=== PATIENT | female | born 1980 | race American Indian/Alaskan Native ===

== ENCOUNTER 2016-08-11 09:18 | Emergency (ER) | payer SELFPAY | END 2016-08-11 15:15 | disposition left against medical advice (07) | LOC: ED 09:18 | DX: R10.30 Lower abdominal pain, unspecified (principal); M79.606 Pain in leg, unspecified; Z53.21 Procedure and treatment not carried out due to patient leaving prior to being seen by health care provider ==

== ENCOUNTER 2017-08-20 16:35 | Outpatient (CLI) | payer MEDICAID | END 2017-08-20 16:36 | disposition home or self-care (01) | LOC: VAS 16:35 | PROVIDERS: ATTEND Obstetrics & Gynecology | DX: M79.605 Pain in left leg (principal); R22.42 Localized swelling, mass and lump, left lower limb ==

== ENCOUNTER 2017-11-29 12:18 | Outpatient (CLI) | payer MEDICAID ==
[2017-11-29 13:39] LABS: Bacteria,Urine 4+ /HPF (Negative); Bilirubin,Urine NEG (Negative); Blood,Urine NEG (Negative); Color,Urine Yellow (Yellow); Mucus,Urine 1+ /HPF; Urobilinogen,Urine < 2.0 mg/dL (<2.0)
[2017-11-29] MEDS ORDERED: LACTATED RINGERS 1,000 ML ONE (13:52)
[2017-11-29] MEDS ORDERED: LACTATED RINGERS 1,000 ML IV ONE (14:00)
[2017-11-29 15:02] VITALS: BP 107/50
== END 2017-11-29 15:28 | disposition home or self-care (01) ==
LOC: TRG 12:18
PROVIDERS: ATTEND Obstetrics & Gynecology
DX: O47.02 False labor before 37 completed weeks of gestation, second trimester (principal); Z3A.34 34 weeks gestation of pregnancy
CPT/HCPCS: 59025; 81001; 96360; 96361; J7120

== ENCOUNTER 2017-12-03 17:16 | Outpatient (CLI) | payer MEDICAID ==
[2017-12-03] MEDS ORDERED: LACTATED RINGERS 1,000 ML IV ONE (18:14)
[2017-12-03] MEDS ORDERED: ZOFRAN IV ONE (18:14)
[2017-12-03 18:15] LABS: Bacteria,Urine 1+ /HPF (Negative); Bilirubin,Urine NEG (Negative); Blood,Urine NEG (Negative); Color,Urine Yellow (Yellow); Mucus,Urine 2+ /HPF; Urobilinogen,Urine < 2.0 mg/dL (<2.0)
[2017-12-03 18:41] VITALS: BP 102/57
== END 2017-12-03 19:50 | disposition home or self-care (01) ==
LOC: TRG 17:16
PROVIDERS: ATTEND Obstetrics & Gynecology
DX: O47.03 False labor before 37 completed weeks of gestation, third trimester (principal); Z3A.34 34 weeks gestation of pregnancy
CPT/HCPCS: 81001; J2405; J7120

== ENCOUNTER 2017-12-06 02:41 | Outpatient (CLI) | payer MEDICAID ==
[2017-12-06 03:02] VITALS: BP 108/59
[2017-12-06] MEDS ORDERED: LACTATED RINGERS 1,000 ML IV ONE (03:20)
[2017-12-06] MEDS ORDERED: ZOFRAN IV ONE (03:20)
[2017-12-06 04:19] LABS: Bilirubin,Urine NEG (Negative); Blood,Urine NEG (Negative); Color,Urine Yellow (Yellow); Mucus,Urine FEW /HPF; Urobilinogen,Urine < 2.0 mg/dL (<2.0)
== END 2017-12-06 05:32 | disposition home or self-care (01) ==
LOC: TRG 02:41
PROVIDERS: ATTEND Obstetrics & Gynecology
DX: O26.893 Other specified pregnancy related conditions, third trimester (principal); R10.9 Unspecified abdominal pain; M54.5 Low back pain; Z3A.35 35 weeks gestation of pregnancy
CPT/HCPCS: 59025; 81001; 82962; 96360; J2405; J7120

== ENCOUNTER 2017-12-28 13:53 | Outpatient (CLI) | payer MEDICAID ==
[2017-12-28 14:17] VITALS: BP 114/57
[2017-12-28] MEDS ORDERED: BICITRA PO ONE (14:44)
== END 2017-12-28 15:03 | disposition home or self-care (01) ==
LOC: TRG 13:53
PROVIDERS: ATTEND Obstetrics & Gynecology
DX: O47.1 False labor at or after 37 completed weeks of gestation (principal); Z87.891 Personal history of nicotine dependence; Z3A.38 38 weeks gestation of pregnancy
CPT/HCPCS: 59025

== ENCOUNTER 2018-01-01 09:45 | Outpatient (CLI) | payer MEDICAID ==
[2018-01-01] MEDS ORDERED: LACTATED RINGERS 1,000 ML ONE (10:25)
[2018-01-01] MEDS ORDERED: ZOFRAN IV ONE (11:00)
[2018-01-01 11:20] LABS: Hematocrit 30.8 % (30.3-42.9); Hemoglobin 10.1 gm/dl (10.1-14.3); Mean Corpuscular HGB Conc 33 % (30-34); Mean Corpuscular Hemoglobin 26 pg (28-32); Mean Corpuscular Volume 80 fl (79-97); Platelet Count 260 K/mm3 (140-440); Red Blood Count 3.84 M/mm3 (3.65-5.03); Red Cell Distribution Width 15.6 % (13.2-15.2)
[2018-01-01 11:23] LABS: Alanine Aminotransferase 17 units/L (7-56); BUN/Creatinine Ratio 10; Blood Urea Nitrogen 6 mg/dL (7-17); Calcium 9.7 mg/dL (8.4-10.2); Hemolysis Index 6; Lipase 66 units/L (13-60)
[2018-01-01] MEDS ORDERED: REGLAN PO ONE (11:39)
--- NOTE | 2018-01-01 14:05 | Event Note ---
Date: 01/01/18 [address]ing in bed, states she's much better, will allow home, instr'd clear liquids today then BRAT diet tomorrow, instr'd RN to check patient and allow home if no change.
== END 2018-01-01 15:29 | disposition home or self-care (01) ==
LOC: TRG 09:45 → LD 09:55 → TRG 15:29
PROVIDERS: ATTEND Obstetrics & Gynecology
DX: O47.1 False labor at or after 37 completed weeks of gestation (principal); Z83.3 Family history of diabetes mellitus; Z82.49 Family history of ischemic heart disease and other diseases of the circulatory system; Z3A.38 38 weeks gestation of pregnancy
CPT/HCPCS: 36415; 59025; 80053; 82150; 83690; 85027; 96360; 96361; 96374; J2405; J7120

== ENCOUNTER 2019-12-03 14:31 | Emergency (ER) | payer MEDICAID | END 2019-12-03 14:43 | disposition left against medical advice (07) | LOC: ED 14:31 | DX: M79.606 Pain in leg, unspecified (principal); Z53.21 Procedure and treatment not carried out due to patient leaving prior to being seen by health care provider ==